=== PATIENT | female | born 1960 | race African-American/Black ===

== ENCOUNTER 2016-12-19 12:19 | Emergency (ER) | payer SELFPAY ==
[~2016-12-19] VITALS: Ht 172.7 cm; Wt 68.0 kg
[~2016-12-19 12:19] MED LIST: IBUPROFEN600 MG ORAL; NORCO 5-325 TA1 EACH ORAL; ROBAXIN-750750 MG PO; [UNRECOGNIZED DRUG - REMARK]
[2016-12-19 12:41] VITALS: BP 128/79
--- NOTE | 2016-12-19 12:49 | Emergency Room Report ---
History of Present Illness General Chief Complaint: Palpitations Source: Patient Present Illness HPI 56-year-old female history of hyperthyroidism (on methimozole) presenting with 3 weeks of intermittent palpitations Patient states that she has intermittent palpitations, sudden onset, lasts for 10-15 seconds, nonexertional, associated with mild shortness of breath, stopped spontaneously. Patient states that it happens either once or twice a day or every other day. The patient denies any chest pain associated. Denies any syncopal episodes. Patient states that more than 10 years ago she had atrial fibrillation, required cardioversion, was on anticoagulation for one year. No longer on any anticoagulation Patient also states that more than 10 years ago she had a right-sided mastectomy for breast CA, has been following up and has been in remission. No chemoradiation was done Patient also hyperthyroid, denies any change in her medications. Denies any fever chills nausea vomiting diarrhea abdominal pain. No Allergies: Coded Allergies: No Known Allergies (Unverified , 10/13/13) Patient History Past Medical History: see triage record Past Surgical History: none Pertinent Family History: none Last Menstrual Period: "Menopausal Reviewed Nursing Documentation: PMH: Agreed, PSxH: Agreed Nursing Documentation-PMH Hx Cardiac Problems: Yes - "-2010" Hx Diabetes: No - Hypothyroid Hx Cancer: Yes - Breast - Right breast mastectomy Review of Systems All Other Systems: negative except mentioned in HPI Physical Exam Vital Signs Date Time Temp Pulse Resp B/P (MAP) Pulse Ox O2 Delivery O2 Flow Rate FiO2 12/19/16 12:31 97.3 72 16 119/70 100 Room Air Sp02 EP Interpretation: reviewed, normal General Appearance: normal inspection, well appearing, no apparent distress, alert, GCS 15, non-toxic Head: normocephalic, atraumatic Eyes: bilateral eye normal inspection, bilateral eye PERRL, bilateral eye EOMI ENT: normal ENT inspection, normal pharynx, normal voice, moist mucus membranes Neck: normal inspection, full range of motion, supple Respiratory: normal inspection, lungs clear, normal breath sounds, no respiratory distress, no retraction, no wheezing, speaking full sentences, chest symmetrical Cardiovascular #1: normal inspection, regular rate, rhythm, no edema, normal capillary refill Cardiovascular #2: 2+ radial (R), 2+ radial (L) Gastrointestinal: normal inspection, non tender, soft, non-distended, no guarding Musculoskeletal: normal inspection, back normal, normal range of motion, non- tender Neurologic: normal inspection, alert, oriented x3, responsive, motor strength/ tone normal, sensory intact, normal gait, speech normal Psychiatric: normal inspection, judgement/insight normal, memory normal Skin: normal inspection, normal color, no rash, warm/dry, well hydrated, normal turgor Medical Decision Making Diagnostic Impression: Primary Impression: Palpitations Additional Impression: Hyperthyroidism ER Course 56-year-old female with intermittent palpitations for 3 weeks DDX: Arrhythmia such as paroxysmal atrial fibrillation/SVT Cardiac Dehydration, likely disturbance Anemia Endocrine, hyperthyroidism PE is as well differential, however at this time there are other likely diagnoses, no hypoxia no tachycardia. Patient is asymptomatic at this time. No recent surgeries, hemoptysis, estrogen use, no prior history of DVT or PE, no unilateral swelling, no recent surgery Plan: Obtain labs, ua, EKG, CXR, tsh ER course: Patient has been monitored during ED stay, HD stable No tachycardia in the emergency room, patient has been calm cooperative, not in acute distress TSH low --- hyperthyroidism no signs of thyroid storm --- no hypertension/tachy Disposition: The patient will be discharged to home Patient instructed to followup with her primary care doctor/endocrine for adjustment for her medications She is instructed to take her methimazole as directed Also told to FU with cardiology Strict return precautions discussed the patient such as severe palpitations, nausea, vomiting, chest pain, shortness of breath, syncopal episodes Please note that this Emergency Department Report was dictated using [employer] puller technology software, occasionally this can lead to erroneous entry secondary to interpretation by the dictation equipment. Chest X-ray CXR: Ordered: Yes 1 view Indication: Chest pain EP interpretation: Yes Interpretation: No consolidation, no effusion, no PTX, no acute cardiopulmonary disease Impression: No acute disease Electronically signed by Fouzia Barbour MD Laboratory Tests Test 12/19/16 12:40 White Blood Count 3.6 K/UL (4.8-10.8) L Red Blood Count 3.82 M/UL (4.20-5.40) L Hemoglobin 11.4 G/DL (12.0-16.0) L Hematocrit 34.2 % (37.0-47.0) L Mean Corpuscular Volume 89 FL (80-99) Mean Corpuscular Hemoglobin 29.7 PG (27.0-31.0) Mean Corpuscular Hemoglobin Concent 33.2 G/DL (32.0-36.0) Red Cell Distribution Width 11.4 % (11.6-14.8) L Platelet Count 209 K/UL (150-450) Mean Platelet Volume 8.7 FL (6.5-10.1) Neutrophils (%) (Auto) 50.8 % (45.0-75.0) Lymphocytes (%) (Auto) 38.2 % (20.0-45.0) Monocytes (%) (Auto) 8.6 % (1.0-10.0) Eosinophils (%) (Auto) 1.4 % (0.0-3.0) Basophils (%) (Auto) 1.1 % (0.0-2.0) Sodium Level 137 MMOL/L (136-145) Potassium Level 3.3 MMOL/L (3.5-5.1) L Chloride Level 101 MMOL/L (98-107) Carbon Dioxide Level 29 MMOL/L (21-32) Anion Gap 7 (5-15) Blood Urea Nitrogen 7 mg/dL (7-18) Creatinine 0.6 MG/DL (0.55-1.30) Estimate Glomerular Filtration Rate > 60 mL/min (>60) Glucose Level 103 MG/DL (74-106) Calcium Level 9.1 MG/DL (8.5-10.1) Total Bilirubin 0.3 MG/DL (0.2-1.0) Aspartate Amino Transferase (AST) 20 U/L (15-37) Alanine Aminotransferase (ALT) 15 U/L (12-78) Alkaline Phosphatase 125 U/L (46-116) H Total Creatine Kinase 139 U/L (26-308) Creatine Kinase MB 0.6 NG/ML (0.0-3.6) Creatine Kinase MB Relative Index 0.4 Troponin I 0.000 ng/mL (0.000-0.056) Total Protein 7.7 G/DL (6.4-8.2) Albumin 3.9 G/DL (3.4-5.0) Globulin 3.8 g/dL Albumin/Globulin Ratio 1.0 (1.0-2.7) Thyroid Stimulating Hormone (TSH) 0.099 uiU/mL (0.360-3.740) EKG Diagnostic Results Rate: normal Rhythm: NSR ST Segments: other Rhythm Strip Diag. Results EP Interpretation: yes Rate: 63 Rhythm: NSR, no PVC's, no ectopy Last Vital Signs Date Time Temp Pulse Resp B/P (MAP) Pulse Ox O2 Delivery O2 Flow Rate FiO2 12/19/16 12:31 97.3 72 16 119/70 100 Room Air Disposition: HOME, SELF-CARE Condition: Stable Patient Instructions: Hyperthyroidism Additional Instructions: Please followup with your regional operations director and brand engineer within one week Please take your methimazole as directed Fouzia Barbour M.D. Dec 19, 2016 12:49
[2016-12-19] MEDS ORDERED: METHIMAZOLE10 MG PO (12:51)
[2016-12-19 13:20] LABS: BASOPHILS % (AUTO) 1.1 % (0.0-2.0); EOSINOPHILS % (AUTO) 1.4 % (0.0-3.0); LYMPHOCYTES % (AUTO) 38.2 % (20.0-45.0); MEAN CORPUSCULAR HEMOGLOBIN 29.7 PG (27.0-31.0); MEAN CORPUSCULAR HGB CONC 33.2 G/DL (32.0-36.0); MEAN CORPUSCULAR VOLUME 89 FL (80-99); MEAN PLATELET VOLUME 8.7 FL (6.5-10.1); MONOCYTES % (AUTO) 8.6 % (1.0-10.0); NEUTROPHILS % (AUTO) 50.8 % (45.0-75.0); PLATELET COUNT 209 K/UL (150-450); RED BLOOD COUNT 3.82 M/UL (4.20-5.40); RED CELL DISTRIBUTION WIDTH 11.4 % (11.6-14.8); WHITE BLOOD COUNT 3.6 K/UL (4.8-10.8)
[2016-12-19 13:36] LABS: ALANINE AMINOTRANSFERASE 15 U/L (12-78); ANION GAP 7 (5-15); ASPARTATE AMINO TRANSFERASE 20 U/L (15-37); CALCIUM 9.1 MG/DL (8.5-10.1); CARBON DIOXIDE 29 MMOL/L (21-32); CHLORIDE 101 MMOL/L (98-107); CKMB 0.6 NG/ML (0.0-3.6); CREATININE 0.6 MG/DL (0.55-1.30); GLOMERULAR FILTRATION RATE > 60 mL/min (>60); POTASSIUM 3.3 MMOL/L (3.5-5.1); SODIUM 137 MMOL/L (136-145); THYROID STIMULATING HORMONE 0.099 uiU/mL (0.360-3.740); TOTAL PROTEIN 7.7 G/DL (6.4-8.2)
[2016-12-19 15:30] VITALS: BP 138/91
--- NOTE | 2016-12-19 16:25 | Diagnostic Imaging Report ---
Indication: PAIN, arrhythmia Technique: One view of the chest Comparison: none Findings: Lungs and pleural spaces are clear. Heart size is normal. Impression: No acute process
--- NOTE | 2017-01-01 12:24 | Cardiology Report ---
APPROVED REPORT EKG Measurement Heart [id number] [place] 210P [id number] Ectopic atrial rhythm with 1st degree AV block Abnormal ECG
== END 2016-12-19 15:30 | disposition home or self-care (01) ==
LOC: EMR 12:58
DX: E05.90 Thyrotoxicosis, unspecified without thyrotoxic crisis or storm (principal); Z85.3 Personal history of malignant neoplasm of breast; Z90.11 Acquired absence of right breast and nipple; I48.91 Unspecified atrial fibrillation
CPT/HCPCS: 36415; 71010; 80053; 82550; 82553; 84443; 84484; 85025; 93005; 99283